=== PATIENT | male | born 1995 | race Two or more races ===

== ENCOUNTER 2025-01-13 17:40 | Emergency (ER) | payer OTHER ==
[~2025-01-13] VITALS: Ht 180.3 cm; Wt 81.6 kg
--- NOTE | 2025-01-13 18:02 | ERN ---
ED Note History of Present Illness Stated Complaint: SENT BY PHY Chief Complaint: Knee Injury/Swelling Time Seen by MD: 17:41 Time Seen by Midlevel: 17:41 Dictation: The patient is a 29-year-old male with no significant medical history who presents to the emergency department with complaints of right knee pain onset Saturday after he kicked someone while kickboxing. Patient denies any other injuries. Allergies: Coded Allergies: ibuprofen (Unverified Allergy, Unknown, UNKNOWN, 01/13/25) Past Medical History RN Note Reviewed/Agreed w/PFSH: Yes Review of System Dictation Constitutional: Negative for fever,chills, and weight loss Eyes: Negative for injury, pain,redness, and discharge ENT: Negative for injury,pain or swelling Cardiovascular: Negative for chest pain, palpitations, and edema Respiratory: Negative for shortness of breath, cough, and wheezing, Abdomen/GI: Negative for abdominal pain, nausea, vomiting, diarrhea, and constipation Back: Negative for injury and pain : Negative for injury, bleeding and discharge MS/Extremity positive for right knee pain, injury Skin: Negative for rash, and discoloration Neuro: Negative for headache, weakness, numbness, tingling, and seizure Psych: Negative for suicide ideation, homicidal ideation, and hallucinations Initial Vital Sign VS Vital Signs Date Time Temp Pulse Resp B/P (MAP) Pulse Ox O2 Delivery O2 Flow Rate FiO2 01/13/25 17:53 98.4 74 18 127/76 98 Room Air 0 Physical Exam Dictation Vital Signs reviewed General Appearance: Alert, oriented x 3, no acute distress, well developed, nourished. Head and Face: non-traumatic. Eyes: PERRL, pink conjunctivas, eyelid no trauma, anterior chamber with arcus senilis. Ears: Pinnas intact and no signs of trauma or erythema ear canals clear and no discharge TM no erythema Nose: No discharge, no bleeding. Oropharynx: Mouth normal, tongue pink. pharynx clear,no erythema, tonsils no exudates, no abscesses noted, mucous membrane moist Neck: Supple, non-tender, no thyromegaly, no masses, no JVD, no bruits Breast:Deferred Chest:No tenderness, no crepitus, no paradoxical movement, no retractions Lungs:Clear, well-ventilated, symmetric, no rales, no wheezing, no rhonchi, no stridor, good breath sounds bilaterally Heart: Regular rate, regular rhythm, no murmur, no gallops Vascular: no peripheral edema, dorsalis pedi 3+ bilaterally, posterior tibial 3+ Abdomen: Soft, positive bowel sounds, nondistended, no guarding, nontender, no rebound, no masses no hepatomegaly, no splenomegaly, no Root's sign, no hernias. Rectal: Deferred Genital: Deferred Neurological: Normal speech, motor function intact, sensory function intact Musculoskeletal: Neck nontender, full range of motion, back nontender, full range of motion, Extremities: nontender, full range of motion , no swelling to right knee, full range of motion, cap refill to right foot less than 2 seconds Skin: Color pink, dry, no turgor, no rash, no lacerations, no abrasions, no contusions. Lymphatic: Deferred Results (Laboratory/Radiology) Laboratory/Radiology RIGHT KNEE RADIOGRAPHS - 3 VIEWS INDICATION: Pain COMPARISON: None FINDINGS: AP, crosstable lateral, and oblique views. No acute fracture or dislocation identified. No significant joint effusion is present. Overlying soft tissues appear normal. IMPRESSION: No evidence for fracture or dislocation. Labs Reviewed?: Yes ED Course ED Course Orders Procedure Category Date Status Time Knee 3vws Rt RAD 01/13/25 Resulted 17:47 Hydrocodone/Apap PHA 01/13/25 Complete 5/325 ([place] 5/325mg) 18:00 Current Medications Medications (Trade) Dose Ordered Sig/Lalit Route PRN Reason Start Time Stop Time Status Last Admin Dose Admin Acetaminophen/ Hydrocodone Bitart (NORco 5/325MG) 1 tab ONCE ONCE PO 01/13/25 18:00 01/13/25 18:02 DC Vital Signs Date Time Temp Pulse Resp B/P (MAP) Pulse Ox O2 Delivery O2 Flow Rate FiO2 01/13/25 17:53 98.4 74 18 127/76 98 Room Air 0 Medical Decision Making MDM MDM: The patient is a 29-year-old male with no significant medical history who presents to the emergency department with complaints of right knee pain onset after he kicked someone while kickboxing. Patient denies any other injuries. X-ray showed no acute fracture or dislocations. Patient neurovascular intact, good distal pulses, Patient ambulatory. Patient has a knee sleeve. Patient will be discharge to follow up with PCP Differential diagnosis: Knee sprain, knee fracture, knee dislocation Need for hospitalization: Patient does not meet criteria for hospitalization. There are no social concerns with this patient. DX & DISP Disposition: Discharge Departure Impression: Primary Impression: Right knee sprain Additional Impression: Right knee pain Condition: Stable Additional Instructions: Your x-ray showed no fractures or dislocations. Your symptoms probably related to a sprain. Avoid any physical activity that could further caused injury.Follow up with pcp. FOLLOW-UP WITH PRIMARY CARE PROVIDER IN 1 TO 2 DAYS. TAKE MEDICATIONS DIRECTED HERE IN THE EMERGENCY ROOM. OKAY TO CONTINUE HOME MEDICATIONS UNLESS OTHERWISE DISCUSSED DURING YOUR VISIT IN THE EMERGENCY ROOM TODAY. RETURN TO YOUR NEAREST EMERGENCY ROOM IF SYMPTOMS WORSEN OR IF THERE IS NO IMPROVEMENT. CALL 911 IF YOU NEED IMMEDIATE ASSISTANCE. TAKE TYLENOL OR MOTRIN [id number] NEEDED AND IF NO CONTRAINDICATIONS ARE PRESENT. INCREASE ORAL HYDRATION. A WOUND CULTURE OR URINE CULTURE WAS ORDERED HERE IN THE EMERGENCY ROOM DEPARTMENT PLEASE FOLLOW-UP WITH PRIMARY CARE PROVIDER AND ADVISE THEM TO GET REPEAT PORTS FROM OUR FACILITY. IF YOU HAD ANY NERISSA WRAP/SPLINTS THAT WERE APPLIED HERE, PLEASE DO NOT REMOVE THEM UNTIL YOU SEE YOUR PRIMARY CARE OR SPECIALTY. Referrals: SELF,REFERRAL (PCP) MERLIN MINER MD Time of Disposition: 18:25 I have reviewed the case, and I agree with, Diagnosis and Plan SHANNON WARE January 13, 2025 18:02
--- NOTE | 2025-01-13 18:22 | HMCIMG ---
RIGHT KNEE RADIOGRAPHS - 3 VIEWS INDICATION: Pain COMPARISON: None FINDINGS: AP, crosstable lateral, and oblique views. No acute fracture or dislocation identified. No significant joint effusion is present. Overlying soft tissues appear normal. IMPRESSION: No evidence for fracture or dislocation.
[2025-01-13] MEDS: HYDROcodone/APAP 5/325 1 TAB TABLET PO ONE (18:27)
[2025-01-13 18:39] VITALS: BP 121/73; PULSE 74; RESP 18; TEMP 98.5; O2SAT 98
== END 2025-01-13 18:40 | disposition home or self-care (01) ==
LOC: EDH 17:40
DX: S83.91XA Sprain of unspecified site of right knee, initial encounter (principal); M25.561 Pain in right knee; Z88.6 Allergy status to analgesic agent; W51.XXXA Accidental striking against or bumped into by another person, initial encounter; Y93.89 Activity, other specified; Y92.89 Other specified places as the place of occurrence of the external cause; Y99.8 Other external cause status
CPT/HCPCS: 73562; 99283